=== PATIENT | male | born 1995 | race Caucasian/White ===

== ENCOUNTER 2017-07-03 04:00 | Emergency (ER) | payer OTHER ==
--- NOTE | 2017-07-03 04:15 | ED Physician Documentation ---
General Adult - HISTORIAN Historian: patient - HPI Stated Complaint: N/v, alcohol use Chief Complaint: General Adult Onset: hours Timing: still present Severity: moderate Further Comments: yes (Pt is a 21 yo male who had been drinking alcohol earlier tonight and has had n/v, dizziness.) - ROS CONST: other (alcohol intoxication) EYES/ENT: none CVS/RESP: none GI/: vomiting, nausea NEURO/PSYCH: dizziness, other (alcohol intoxication) - PAST HX Past History: none Allergies/Adverse Reactions: Allergies Allergy/AdvReac Type Severity Reaction Status Date / Time No Known Allergies Allergy Verified 07/03/17 04:22 Home Medications: Ambulatory Orders Medication Instructions Recorded NK [NK] 07/03/17 - SOCIAL HX Smoking History: non-smoker Alcohol Use: occasionally - FAMILY HX Family History: No - REVIEWED ASSESSMENTS Nursing Assessment Reviewed: Yes Vitals Reviewed: Yes Progress - Progress Progress: NS 1 L IVF Zofran 4 mg IV KCL 20 mEq po General Adult Physical Exam - PHYSICAL EXAM GENERAL APPEARANCE: moderate distress EENT: pharynx normal NECK: normal inspection, supple RESPIRATORY: no resp distress, chest non-tender, breath sounds normal CVS: reg rate & rhythm, heart sounds normal ABDOMEN: soft, no organomegaly, normal bowel sounds BACK: normal inspection SKIN: warm/dry, normal color EXTREMITIES: non-tender, normal range of motion, no evidence of injury NEURO: oriented X3, motor nml, sensation nml, other (alcoholic intoxication) Discharge Clincal Impression: ETOH intoxication Condition: Good Disposition: 01 HOME, SELF-CARE Decision to Admit: NO Decision Time: 07:10
[2017-07-03] MEDS: ONDANSETRON HCL/PF 4 MG/ 2ML VIAL IVP ONE (04:20)
[2017-07-03] MEDS: 0.9 % SODIUM CHLORIDE 1,000 ML IV ONE ×2 (04:20→04:34)
[2017-07-03] MEDS: ONDANSETRON HCL/PF 4 MG/ 2ML VIAL ONE (06:13)
[2017-07-03 06:43] LABS: BASOPHILS % 0.5 (0.0-1.5); EOSINOPHILS % 2.4 % (0.0-6.8); MEAN CORPUSCULAR HEMOGLOBIN 31.1 pg (28.0-34.0); MEAN CORPUSCULAR VOLUME 90.1 fl (80.0-100.0); MONOCYTES % 3.3 % (0.0-11.0); NEUTROPHILS # 8.4 # k/uL (1.4-7.7)
[2017-07-03 06:55] LABS: eGFR (African) > 60; eGFR (Non-African) > 60
[2017-07-03] MEDS ORDERED: POTASSIUM CHLORIDE 20 MEQ TABLET.ER PO ONE (07:02)
[2017-07-03 07:45] VITALS: BP 118/58
== END 2017-07-03 07:10 | disposition home or self-care (01) ==
LOC: ED 04:00
DX: F10.129 Alcohol abuse with intoxication, unspecified (principal)
CPT/HCPCS: 80053; 80320; 85025; J2405; J7030; 96361; 96374; 99283; G0480; S1016